=== PATIENT | male | born 1965 | race Caucasian/White ===

== ENCOUNTER 2017-01-26 06:18 | Outpatient (CLI) ==
[2017-01-26 06:31] LABS: BASOPHILS % (AUTO) 0.3 % (0.0-3.0); EOSINOPHILS # (AUTO) 0.5 K/ul (0.0-0.7); EOSINOPHILS % (AUTO) 4.6 % (0.0-7.0); HEMATOCRIT 43.5 % (42.0-52.0); IMMATURE GRANULOCYTE % (AUTO) 0.7 % (0.0-5.0); LYMPHOCYTES # (AUTO) 2.5 K/uL (0.60-3.4); LYMPHOCYTES % (AUTO) 25.5 (10.0-50.0); MEAN CORPUSCULAR HEMOGLOBIN 30.1 pg (27.0-31.0); MEAN CORPUSCULAR HGB CONC 34.5 (31.8-35.4); MEAN CORPUSCULAR VOLUME 87.3 fl (80.0-94.0); MONOCYTES # (AUTO) 0.7 K/uL (0.4-2.0); MONOCYTES % (AUTO) 7.5 (0-10); NEUTROPHILS % (AUTO) 61.4; PLATELET COUNT 236 10^3/uL (140-440); RED BLOOD COUNT 4.98 10^6/ul (4.70-6.10); WHITE BLOOD COUNT 9.81 K/ul (4.2-10.2)
[2017-01-26 06:49] LABS: ALBUMIN 3.7 g/dL (3.4-5.0); ALBUMIN/GLOBULIN RATIO 1.12; ANION GAP 11.3; BILIRUBIN,TOTAL 0.49 mg/dL (0.00-1.20); BUN/CREATININE RATIO 13.91; CALCIUM 9.2 mg/dL (8.2-10.2); CHOL/HDL RATIO 5.7 (4.5-6.4); CREATININE 1.15 mg/dL (0.60-1.10); POTASSIUM 4.3 mmol/L (3.5-5.1)
== END 2017-01-26 06:19 | disposition home or self-care (01) ==
LOC: LAB 06:18
PROVIDERS: ATTEND Family Medicine
DX: E78.1 Pure hyperglyceridemia (principal); I10 Essential (primary) hypertension; R73.9 Hyperglycemia, unspecified
CPT/HCPCS: 36415; 80053; 80061; 85025

== ENCOUNTER 2017-02-19 10:47 | Outpatient (CLI) ==
[2017-02-19 11:29] LABS: BASOPHILS % (AUTO) 0.4 % (0.0-3.0); EOSINOPHILS # (AUTO) 0.6 K/ul (0.0-0.7); EOSINOPHILS % (AUTO) 6.4 % (0.0-7.0); HEMATOCRIT 42.9 % (42.0-52.0); IMMATURE GRANULOCYTE % (AUTO) 0.7 % (0.0-5.0); LYMPHOCYTES # (AUTO) 2.2 K/uL (0.60-3.4); LYMPHOCYTES % (AUTO) 23.7 (10.0-50.0); MEAN CORPUSCULAR HEMOGLOBIN 30.5 pg (27.0-31.0); MEAN CORPUSCULAR VOLUME 87.4 fl (80.0-94.0); MONOCYTES # (AUTO) 0.8 K/uL (0.4-2.0); MONOCYTES % (AUTO) 9.1 (0-10); NEUTROPHILS # (AUTO) 5.5 K/ul (2.0-6.9); NEUTROPHILS % (AUTO) 59.7; PLATELET COUNT 235 10^3/uL (140-440); RED BLOOD COUNT 4.91 10^6/ul (4.70-6.10); WHITE BLOOD COUNT 9.16 K/ul (4.2-10.2)
--- NOTE | 2017-02-19 11:38 | DI ---
EXAM: Chest two views HISTORY: Chest pain COMPARISON: 03/28/2015 TECHNIQUE: Two views of the chest were performed FINDINGS: The lungs are clear, excepting for granulomatous calcification. There is no pleural effu jesus or pneumothorax. The heart is normal in size. The mediastinal contour is unchanged, noting at herosclerosis. There are no acute abnormalities of the bones. IMPRESSION: No acute cardiopulmonary process.
[2017-02-19 12:05] LABS: ALANINE AMINOTRANSFERASE 60 U/L (12-78); ALBUMIN 3.9 g/dL (3.4-5.0); ALBUMIN/GLOBULIN RATIO 1.08; ALKALINE PHOSPHATASE 73 U/L (50-136); ANION GAP 14.5; ASPARTATE AMINO TRANSFERASE 58 U/L (15-37); BILIRUBIN,TOTAL 0.43 mg/dL (0.00-1.20); BLOOD UREA NITROGEN 16 mg/dL (7-18); BUN/CREATININE RATIO 15.38; CALCIUM 9.7 mg/dL (8.2-10.2); CARBON DIOXIDE 23 mmol/L (21-32); CHLORIDE 109 mmol/L (98-107); CHOL/HDL RATIO 4.6 (4.5-6.4); CHOLESTEROL 155 mg/dL (0-200); CREATINE KINASE 152 U/L; CREATININE 1.04 mg/dL (0.60-1.10); GLUCOSE 93 mg/dL (70-100); HDL CHOLESTEROL 34 mg/dL (35-60); POTASSIUM 4.5 mmol/L (3.5-5.1); SODIUM 142 mmol/L (136-145); TOTAL PROTEIN 7.5 g/dL (6.4-8.2); TRIGLYCERIDES 523 mg/dL (30-150)
[2017-02-19 12:13] LABS: CREATINE KINASE MB 2.5 ng/ml (0.0-3.6)
[2017-02-19 12:29] LABS: ERYTHROCYTE SEDIMENTATION RATE 29 mm/hr (0-15); ESR INTERNAL QC INTERNAL QC VALID
[2017-02-20 09:29] LABS: C-REACTIVE PROTEIN 2.3 mg/L (0.0-4.9)
== END 2017-02-19 10:48 | disposition home or self-care (01) ==
LOC: RAD 10:47
PROVIDERS: ATTEND Family Medicine
DX: R07.9 Chest pain, unspecified (principal); R61 Generalized hyperhidrosis; R42 Dizziness and giddiness; E78.5 Hyperlipidemia, unspecified; I10 Essential (primary) hypertension; M54.2 Cervicalgia
CPT/HCPCS: 36415; 80053; 80061; 82550; 82553; 84443; 84484; 85025; 85651; 86140; 86141; 93005; 93010

== ENCOUNTER 2017-02-20 12:54 | Outpatient (CLI) ==
--- NOTE | 2017-02-21 13:28 | MRI ---
EXAM: Cervical spine MRI without contrast. HISTORY: Neck pain. COMPARISON: None. TECHNIQUE: Multiplanar, multisequence MR images were acquired of the cervical spine without contras t. FINDINGS: The craniocervical junction is unremarkable and the cervical cord has normal signal inten sity. There is straightening of the usual cervical lordosis with a trace anterolisthesis of C3 on C 4 and minor cervical dextroscoliosis centered at C3-4. There is a 5% C7 superior endplate compressi on deformity with minor anterior wedging and concavity of the C7 superior endplate. Anterior superi or cortical buckling is fractured and there is a fracture extends from the anterior superior cortex to the posterior superior cortex with minor 1 mm posterior superior cortical buckling. Mild bright STIR signal edema is present. This is consistent with a late acute fracture. There is ventral spon dylosis in the cervical spine from C3-4 to C7-T1. At C3-4, there is osteophytosis with mild degener ative endplate changes and disc space narrowing that is greatest anteriorly. There is osteophytosis with mild degenerative endplate changes at C6-7. There are no paravertebral masses. Visualized ceferino ng apices are clear. C2-3: The intervertebral disc is normal. C3-4: There is a posterior disc osteophyte complex with a small central disc protrusion that extend s to the right which mildly indents the cervical cord. This merges with right uncovertebral hypertr ophy. Left uncovertebral hypertrophy is also present and there is severe right neural foraminal charline nosis. C4-5: There is a minor disc bulge and left uncovertebral hypertrophy with minor left foraminal sten osis. C5-6: There is a mild disc bulge with a small central disc protrusion that mildly indents the cervi bird cord although cerebrospinal fluid is preserved around the cord. C6-7: There is a diffuse disc osteophyte complex that is slightly asymmetric to the right which mil dly indents the right cervical cord. Right uncovertebral hypertrophy is present and there is minor right foraminal stenosis. C7-T1: The intervertebral disc is normal. IMPRESSION: 1. Mild cervical degenerative spondylosis without spinal stenosis. 2. Moderate discogenic disease C3-4 with small central disc protrusion. 3. Small central disc protrusion C5-6 that mildly indents the cervical cord without edema. 4. Severe right C3-4 neural foraminal stenosis. 5. Late acute minor burst fracture of C7 with 1 mm retropulsion.
== END 2017-02-20 12:55 | disposition home or self-care (01) ==
LOC: RAD 12:54
PROVIDERS: ATTEND Family Medicine
DX: M54.2 Cervicalgia (principal); R07.9 Chest pain, unspecified

== ENCOUNTER 2017-04-01 07:03 | Outpatient (CLI) ==
[2017-04-01 07:21] LABS: BASOPHILS # (AUTO) 0.1 K/uL (0-0.2); BASOPHILS % (AUTO) 0.5 % (0.0-3.0); EOSINOPHILS # (AUTO) 0.5 K/ul (0.0-0.7); EOSINOPHILS % (AUTO) 5.2 % (0.0-7.0); HEMATOCRIT 41.3 % (42.0-52.0); HEMOGLOBIN 14.4 g/dl (14.0-18.0); IMMATURE GRANULOCYTE % (AUTO) 0.6 % (0.0-5.0); LYMPHOCYTES # (AUTO) 2.2 K/uL (0.60-3.4); LYMPHOCYTES % (AUTO) 24.2 (10.0-50.0); MEAN CORPUSCULAR HEMOGLOBIN 30.7 pg (27.0-31.0); MEAN CORPUSCULAR HGB CONC 34.9 (31.8-35.4); MEAN CORPUSCULAR VOLUME 88.1 fl (80.0-94.0); MONOCYTES # (AUTO) 0.7 K/uL (0.4-2.0); MONOCYTES % (AUTO) 7.5 (0-10); NEUTROPHILS # (AUTO) 5.7 K/ul (2.0-6.9); PLATELET COUNT 239 10^3/uL (140-440); RED BLOOD COUNT 4.69 10^6/ul (4.70-6.10); WHITE BLOOD COUNT 9.24 K/ul (4.2-10.2)
[2017-04-01 07:35] LABS: ALBUMIN 3.7 g/dL (3.4-5.0); ALBUMIN/GLOBULIN RATIO 1.16; ANION GAP 11.5; BILIRUBIN,TOTAL 0.49 mg/dL (0.00-1.20); BUN/CREATININE RATIO 12.5; CALCIUM 9.3 mg/dL (8.2-10.2); CHOL/HDL RATIO 4.8 (4.5-6.4); CREATININE 1.12 mg/dL (0.60-1.10); POTASSIUM 4.5 mmol/L (3.5-5.1); TOTAL PROTEIN 6.9 g/dL (6.4-8.2)
== END 2017-04-01 07:04 | disposition home or self-care (01) ==
LOC: LAB 07:03
PROVIDERS: ATTEND Family Medicine
DX: E78.5 Hyperlipidemia, unspecified (principal); R73.9 Hyperglycemia, unspecified; I10 Essential (primary) hypertension; M10.9 Gout, unspecified; Z79.899 Other long term (current) drug therapy
CPT/HCPCS: 36415; 80053; 80061; 83036; 85025

== ENCOUNTER 2017-07-13 07:00 | Outpatient (CLI) ==
[2017-07-13 07:13] LABS: BASOPHILS % (AUTO) 0.4 % (0.0-3.0); EOSINOPHILS # (AUTO) 0.4 K/ul (0.0-0.7); HEMATOCRIT 41.1 % (42.0-52.0); HEMOGLOBIN 14.4 g/dl (14.0-18.0); IMMATURE GRANULOCYTE % (AUTO) 0.4 % (0.0-5.0); LYMPHOCYTES % (AUTO) 23.4 (10.0-50.0); MEAN CORPUSCULAR HEMOGLOBIN 30.1 pg (27.0-31.0); MONOCYTES # (AUTO) 0.6 K/uL (0.4-2.0); MONOCYTES % (AUTO) 7.4 (0-10); NEUTROPHILS # (AUTO) 5.3 K/ul (2.0-6.9); NEUTROPHILS % (AUTO) 63.4; PLATELET COUNT 208 10^3/uL (140-440); RED BLOOD COUNT 4.78 10^6/ul (4.70-6.10); WHITE BLOOD COUNT 8.35 K/ul (4.2-10.2)
[2017-07-13 07:31] LABS: ALBUMIN 3.5 g/dL (3.4-5.0); ALBUMIN/GLOBULIN RATIO 1.09; ANION GAP 10.4; BILIRUBIN,TOTAL 0.5 mg/dL (0.00-1.20); BUN/CREATININE RATIO 10.57; CALCIUM 9.5 mg/dL (8.2-10.2); CHOL/HDL RATIO 4.2 (4.5-6.4); CREATININE 1.04 mg/dL (0.60-1.10); POTASSIUM 4.4 mmol/L (3.5-5.1); TOTAL PROTEIN 6.7 g/dL (6.4-8.2)
== END 2017-07-13 07:01 | disposition home or self-care (01) ==
LOC: LAB 07:00
PROVIDERS: ATTEND Family Medicine
DX: E78.5 Hyperlipidemia, unspecified (principal); R73.9 Hyperglycemia, unspecified; I10 Essential (primary) hypertension; M10.9 Gout, unspecified; Z79.899 Other long term (current) drug therapy
CPT/HCPCS: 36415; 80053; 80061; 83036; 85025

== ENCOUNTER 2017-10-07 06:21 | Outpatient (CLI) ==
[2017-10-07 06:51] LABS: BASOPHILS % (AUTO) 0.3 % (0.0-3.0); EOSINOPHILS # (AUTO) 0.4 K/ul (0.0-0.7); EOSINOPHILS % (AUTO) 4.4 % (0.0-7.0); HEMATOCRIT 42.7 % (42.0-52.0); HEMOGLOBIN 15.1 g/dl (14.0-18.0); IMMATURE GRANULOCYTE % (AUTO) 0.7 % (0.0-5.0); LYMPHOCYTES % (AUTO) 22.5 (10.0-50.0); MEAN CORPUSCULAR HEMOGLOBIN 30.6 pg (27.0-31.0); MEAN CORPUSCULAR HGB CONC 35.4 (31.8-35.4); MEAN CORPUSCULAR VOLUME 86.6 fl (80.0-94.0); MONOCYTES # (AUTO) 0.7 K/uL (0.4-2.0); MONOCYTES % (AUTO) 8.4 (0-10); NEUTROPHILS # (AUTO) 5.6 K/ul (2.0-6.9); NEUTROPHILS % (AUTO) 63.7; PLATELET COUNT 227 10^3/uL (140-440); RED BLOOD COUNT 4.93 10^6/ul (4.70-6.10); WHITE BLOOD COUNT 8.83 K/ul (4.2-10.2)
[2017-10-07 06:53] LABS: ADD URINE MICROSCOPIC NO; BILIRUBIN,URINE Negative (NEGATIVE); KETONES,URINE Negative (NEGATIVE); LEUKOCYTE ESTERASE ,URINE Negative (NEGATIVE); NITRITE,URINE Negative (NEGATIVE); PROTEIN,URINE Negative (NEGATIVE); URINE, BLOOD Negative (NEGATIVE)
[2017-10-07 06:56] LABS: ALBUMIN 3.5 g/dL (3.4-5.0); ALBUMIN/GLOBULIN RATIO 0.97; ANION GAP 14.2; BILIRUBIN,TOTAL 0.4 mg/dL (0.00-1.20); CALCIUM 9.4 mg/dL (8.2-10.2); CHOL/HDL RATIO 6.6 (4.5-6.4); POTASSIUM 4.2 mmol/L (3.5-5.1); TOTAL PROTEIN 7.1 g/dL (6.4-8.2)
== END 2017-10-07 06:22 | disposition home or self-care (01) ==
LOC: LAB 06:21
PROVIDERS: ATTEND Family Medicine
DX: E78.5 Hyperlipidemia, unspecified (principal); R73.9 Hyperglycemia, unspecified; I10 Essential (primary) hypertension; M10.9 Gout, unspecified; Z79.899 Other long term (current) drug therapy
CPT/HCPCS: 36415; 80053; 80061; 81001; 85025

== ENCOUNTER 2017-12-09 07:26 | Outpatient (CLI) ==
[2017-12-10 16:32] VITALS: BMI 38.6
== END 2017-12-09 07:27 | disposition home or self-care (01) ==
LOC: LAB 07:26
PROVIDERS: ATTEND Family Medicine
DX: E78.5 Hyperlipidemia, unspecified (principal); R73.9 Hyperglycemia, unspecified; E66.01 Morbid (severe) obesity due to excess calories
CPT/HCPCS: 36415; 80053; 80061; 84439; 84443; 85025

== ENCOUNTER 2017-12-10 16:19 | Emergency (ER) ==
[2017-12-10 16:32] VITALS: TEMP 98.2; BMI 38.6
--- NOTE | 2017-12-10 17:18 | ED.PDOC ---
General ED Provider: Dr. CHRISTIANO FISH Chief Complaint: Chest Pain Stated Complaint: Midsternal chest pain that radiates to his back. Chest pain with exhalation at times. Also pain to both shoulders yesterday. H/A. Pain comes et goes. Nausea yesterday et day before, no vomiting. Took regular aspirin yesterday. Instructed to come to ER for eval per Dr ryder. Time Seen by Physician: 16:35 Mode of Arrival: Walk-In Information Source: Patient Primary Care Provider: FADUMO RYDER Nursing and Triage Documentation Reviewed and Agree: Yes Reviewed sepsis parameters & appropriate labs ordered?: Yes System Inflammatory Response Syndrome: Not Applicable Sepsis Protocol: For patient's 13 years and over: Temp is 96.8 and below OR 101 and greater Pulse >90 BPM Resp >20/minute Acutely Altered Mental Status Are patient's symptoms suggestive of a new infection, such as: -Pneumonia -Skin, Soft Tissue -Endocarditis -UTI -Bone, Joint Infection -Implantable Device -Acute Abdominal Infection -Wound Infection -Meningitis -Blood Stream Catheter Infection -Unknown System Inflammatory Response Syndrome: Not Applicable Cardiovascular Complaint Exam - Chest Pain Complaint/Exam Onset: Gradual Symptoms Are: Resolved Timing: Intermittent Initial Severity: Moderate Current Severity: Mild Location: Reports: Diffuse, Midsternal Pain Radiates: Reports: Back Character: Reports: Aching, Sharp, Stabbing Aggravating: Reports: Movement, Deep breaths Alleviating: Reports: Rest, Upright position Associated Signs and Symptoms: Reports: Back pain Related History: Reports: Similar episode Related Surgical History: Reports: None History of Healthcare-Acquired Pneumonia: Reports: No AMI/ACS Risk Factors: Reports: Diabetes, Hypertension, Dyslipidemia TAD Risk Factors: Reports: Hypertension Pulmonary Embolism Risk Factors: Reports: None Prior Care for this Complaint: No Recent Stress Test: No Recent Echo/LV Function: No JVD Present: No Subcutaneous Emphysema Present: No Diminshed Breath Sounds: No Reproducible Chest Wall Pain: Yes Bilateral Pulses Present: Yes Unequal Pulses Noted: No If Risk Factors for AMI/ACS Consider: EKG, Cardiac Enzymes, Aspirin Differential Diagnoses: ACS, Stable Angina, Chest Wall Pain Quality Indicators For Acute WI or Cardiac Chest Pain: EKG in 10min., ASA if indicated Quality Indicator For Non-Traumatic Chest Pain/Syncope: EKG Performed Review of Systems - Review Of Systems Constitutional: Reports: No symptoms Eyes: Reports: No symptoms Ears, Nose, Mouth, Throat: Reports: No symptoms Respiratory: Reports: No symptoms Cardiac: Reports: Chest pain GI: Reports: No symptoms : Reports: No symptoms Musculoskeletal: Reports: No symptoms Skin: Reports: No symptoms Neurological: Reports: No symptoms Endocrine: Reports: No symptoms Hematologic/Lymphatic: Reports: No symptoms All Other Systems: Reviewed and Negative Past Medical History - Past Medical History Previously Healthy: Yes Endocrine: Reports: DM 2 Cardiovascular: Reports: Hypertension Respiratory: Reports: None Hematological: Reports: None Gastrointestinal: Reports: None Genitourinary: Reports: None Neuro/Psych: Reports: None Musculoskeletal: Reports: None Cancer: Reports: None - Surgical History General Surgical History: Reports: None - Family History Family History: Reports: Heart, Hypertension - Social History Smoking Status: Never smoker Hx Substance Use: No Alcohol Screening: Occasionally Lives: With family Physical Exam - Physical Exam Appearance: Well-appearing Ill-appearing: None Pain Distress: Mild Eyes: BUSTER, EOMI, Conjunctiva clear, Conjunctiva inflammed ENT: Ears normal, Nose normal, Oropharynx normal Neck: Supple Respiratory: Airway patent, Breath sounds clear, Breath sounds equal Cardiovascular: RRR, Pulses normal GI/: Nontender, No masses, Bowel sounds normal Musculoskeletal: Normal strength, ROM intact, No edema, No calf tenderness Skin: Warm, Dry, Normal color Neurological: Sensation intact, Motor intact, Oriented Psychiatric: Affect appropriate, Mood appropriate, Anxious Re-Evaluation - Re-Evaluation Time of Re-Evaluation: 18:00 Status: Improved Vital Signs Stable: Yes Appearance: NAD Lungs: Clear Skin: Warm and Dry Neuro: Alert and Oriented X3 CV: RRR Critical Care Note - Critical Care Note Total Time (mins): 0 Course - Course Hematology/Chemistry: 12/10/17 17:35 12/10/17 17:35 Orders, Labs, Meds: Lab Review 12/10/17 12/10/17 17:35 17:35 WBC 10.05 RBC 4.60 L Hgb 14.0 Hct 40.3 L MCV 87.6 MCH 30.4 MCHC 34.7 RDW Coeff of Myles 12.9 Plt Count 233 Sodium 142 Potassium 4.2 Chloride 108 H Carbon Dioxide 24 Anion Gap 14.2 BUN 14 Creatinine 0.94 Estimated GFR (MDRD) 85.00 BUN/Creatinine Ratio 14.89 Glucose 97 Calcium 9.3 Total Bilirubin 0.3 AST 32 ALT 33 Alkaline Phosphatase 86 Troponin I < 0.0100 Total Protein 7.0 Albumin 3.6 Globulin 3.4 Albumin/Globulin Ratio 1.06 Orders Category Date Time Status EKG-(ED ONLY) Stat CARDIO 12/10/17 17:08 Completed CBC HEMOGRAM ONLY Stat LAB 12/10/17 17:35 Completed COMPREHENSIVE METABOLIC PANEL Stat LAB 12/10/17 17:35 Completed TROPONIN I Stat LAB 12/10/17 17:35 Completed Aspirin [Aspirin Chewable] MEDS 12/10/17 17:32 Discontinued 81 mg .ROUTE .STK-MED ONE Aspirin [Aspirin EC] MEDS 12/10/17 17:30 Discontinued 81 mg PO DAILYWM CHEST, 1V AP ONLY Stat RADS 12/10/17 17:08 Completed Medications Discontinued Medications Generic Name Dose Route Start Last Admin Trade Name Freq PRN Reason Stop Dose Admin Aspirin 81 mg 12/10/17 17:30 12/10/17 17:36 Aspirin Ec PO Not Given DAILYWM ANGELIQUE Vital Signs: Temp Pulse Resp BP Pulse Ox 12/10/17 18:02 77 19 129/74 96 12/10/17 16:23 98.2 F 82 20 134/85 96 JOMAR Risk Score JOMAR Risk Score: Risk Score Odds of by 30D 0 0.1 (0.1-0.2) 1 0.3 (0.2-0.3) 2 0.4 (0.3-0.5) 3 0.7 (0.6-0.9) 4 1.2 (1.0-1.5) 5 2.2 (1.9-2.6) 6 3.0 (2.5-3.6) 7 4.8 (3.8-6.1) Departure - Departure Time of Disposition: 19:30 Disposition: HOME SELF-CARE Discharge Problem: Chest pain, atypical Instructions: Chest Pain (ED) Condition: Good Pt referred to PMD for follow-up: Yes (in next week) IPMP verified?: No Additional Instructions: Recommend taking Aspirin 81 mg ec daily Avoid strenuous activity See family physician in next 5 days If symptoms return or worsen come back to ER Allergies/Adverse Reactions: Allergies No Known Allergies Allergy (Verified 12/10/17 16:32) Home Medications: Ambulatory Orders Allopurinol 300 mg PO DAILY 06/05/14 Atorvastatin Calcium [Lipitor] 20 mg PO DAILY 12/10/17 Fenofibrate [Triglide] 54 mg PO DAILY 12/10/17 Lisinopril 20 mg PO DAILY 12/10/17 Metformin HCl 500 mg PO BID 12/10/17 Disposition Discussed With: Patient, Family
[2017-12-10] MEDS ORDERED: ASPIRIN EC PO SCH (17:30)
[2017-12-10] MEDS ORDERED: ASPIRIN CHEWABLE ONE (17:32)
[2017-12-10 18:02] VITALS: BP 129/74
--- NOTE | 2017-12-10 18:50 | DI ---
Exam: Single view chest x-ray. Date: 12/10/2017. Comparison: 02/19/2017. HISTORY: Chest pain. FINDINGS: The osseous structures are normal. The lungs are clear with calcified granulomas. Cardia c silhouette and pulmonary vasculature are normal. Impression: No acute intrathoracic findings. Old granulomatous disease.
== END 2017-12-10 19:48 | disposition home or self-care (01) ==
LOC: ED 16:19
DX: R07.89 Other chest pain (principal); E11.9 Type 2 diabetes mellitus without complications; I10 Essential (primary) hypertension; E78.5 Hyperlipidemia, unspecified
CPT/HCPCS: 36415; 80053; 84484; 85027; 93005; 93010; 99284

== ENCOUNTER 2018-02-27 06:36 | Outpatient (CLI) | END 2018-02-27 06:37 | disposition home or self-care (01) | LOC: LAB 06:36 | PROVIDERS: ATTEND Family Medicine | DX: E78.1 Pure hyperglyceridemia (principal); R73.9 Hyperglycemia, unspecified; I10 Essential (primary) hypertension; M10.9 Gout, unspecified; E66.9 Obesity, unspecified; Z79.899 Other long term (current) drug therapy | CPT/HCPCS: 36415; 80053; 80061; 81001; 85025 ==

== ENCOUNTER 2018-05-29 06:17 | Outpatient (CLI) ==
--- NOTE | 2018-05-29 06:57 | DI ---
Exam: Five views lumbar spine. Reason for exam: Back pain. FINDINGS: Age indeterminate compression deformity is seen in the L3 vertebral body. Follow lordotic curve is well maintained. No significant degenerative disease. Impression: 1. Age indeterminate compression deformity in the L3 vertebral body with approximately 20% loss of v ertebral body height. 2. Preservation of the lumbar lordotic curve without evidence of listhesis.
--- NOTE | 2018-05-29 06:59 | DI ---
Exam: Three views of the thoracic spine. Comparison: Chest x-ray performed 02/19/2017. Reason for exam: Back pain. FINDINGS: Image interpretation is significantly limited by summation artifact and positioning. No o bvious listhesis in the thoracic spine. Impression: Limited evaluation secondary to patient body habitus and patient with marked summation artifact. If clinical suspicion is high for an osseous injury in the thoracic spine, CT imaging may be performed f or further characterization.
== END 2018-05-29 06:18 | disposition home or self-care (01) ==
LOC: RAD 06:17
PROVIDERS: ATTEND Family Medicine
DX: E78.5 Hyperlipidemia, unspecified (principal); I10 Essential (primary) hypertension; E66.9 Obesity, unspecified; R10.30 Lower abdominal pain, unspecified
CPT/HCPCS: 36415; 80053; 80061; 81001; 84439; 84443; 85025

== ENCOUNTER 2018-09-08 06:26 | Outpatient (CLI) | END 2018-09-08 06:27 | disposition home or self-care (01) | LOC: LAB 06:26 | PROVIDERS: ATTEND Family Medicine | DX: E78.5 Hyperlipidemia, unspecified (principal); I10 Essential (primary) hypertension; E66.9 Obesity, unspecified; R10.30 Lower abdominal pain, unspecified; Z12.5 Encounter for screening for malignant neoplasm of prostate | CPT/HCPCS: 36415; 80053; 80061; 81001; 84439; 84443; 85025 ==